=== PATIENT | male | born 1945 | race Caucasian/White ===

== ENCOUNTER 2018-01-13 08:06 | Emergency (ER) | payer MEDICARE, OTHER ==
[~2018-01-13] VITALS: Ht 177.8 cm; Wt 85.0 kg
[2018-01-13 09:00] LABS: BASOPHILS # (AUTO) 0.04 x10^3/uL (0-0.1); BASOPHILS % (AUTO) 0 % (0-1); EOSINOPHILS # (AUTO) 0.06 x10^3/uL (0-0.4); EOSINOPHILS % (AUTO) 1 % (1-7); LYMPHOCYTES # (AUTO) 1.58 x10^3/uL (1-3.4); LYMPHOCYTES % (AUTO) 13 % (22-44); MD NO; MEAN CORPUSCULAR HEMOGLOBIN 30.9 pg (27.5-34.5); MEAN CORPUSCULAR HGB CONC 33.6 g/dL (33.2-36.2); MEAN PLATELET VOLUME 9.2 fL (7.4-10.4); MONOCYTES # (AUTO) 1.11 x10^3/uL (0.2-0.8); MONOCYTES % (AUTO) 9 % (2-9); NEUTROPHILS # (AUTO) 9.25 x10^3/uL (1.8-6.8); NEUTROPHILS % (AUTO) 77 % (42-75); PLATELET COUNT 221 x10^3/uL (130-400); RED BLOOD COUNT 5.07 x10^6/uL (4.38-5.82)
[2018-01-13] MEDS ORDERED: PHENYLEPHRINE NASAL 1%, 15ML SPRAY ONE (09:02)
[2018-01-13 09:09] LABS: ALBUMIN 3.9 g/dL (3.4-5.0); ANION GAP 10 mmol/L (5-15); CALCIUM 8.9 mg/dL (8.5-10.1); CHLORIDE 106 mmol/L (98-107)
[2018-01-13 09:14] LABS: TROPONIN I < 0.015 ng/mL (0.000-0.045)
[2018-01-13] MEDS ORDERED: SODIUM CHLORIDE FLUSH 10ML SYR IVF ONE (09:30)
[2018-01-13] MEDS ORDERED: SODIUM CHLORIDE 0.9% 1,000ML IVBOLUS ONE (09:30)
[2018-01-13] MEDS ORDERED: OMNIPAQUE 350 MG/ML, 100ML BOTTLE ONE (10:26)
[2018-01-13 11:37] VITALS: BP 132/84
== END 2018-01-13 11:39 | disposition home or self-care (01) ==
LOC: ED 08:58
DX: R04.0 Epistaxis (principal); E11.9 Type 2 diabetes mellitus without complications; K21.9 Gastro-esophageal reflux disease without esophagitis; E78.00 Pure hypercholesterolemia, unspecified; Z87.891 Personal history of nicotine dependence
CPT/HCPCS: 30901; 36415; 71046; 71275; 80048; 82040; 84484; 85025; 93005; 99285; J7030; Q9967

== ENCOUNTER 2020-06-03 15:37 | Emergency (ER) | payer MEDICARE, OTHER ==
[~2020-06-03] VITALS: Ht 177.8 cm; Wt 79.4 kg
--- NOTE | 2020-06-03 16:18 | NUR ---
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
[2020-06-03] MEDS ORDERED: SODIUM CHLORIDE 0.9% 1,000ML IVBOLUS ONE (17:00)
[2020-06-03 17:05] LABS: ALANINE AMINOTRANSFERASE 73 U/L (12-78); ALBUMIN 3.2 g/dL (3.4-5.0); ANION GAP 8 mmol/L (5-15); CALCIUM 8.6 mg/dL (8.5-10.1); CHLORIDE 107 mmol/L (98-107); CREATININE 1.64 mg/dL (0.7-1.3)
[2020-06-03 17:09] LABS: ALKALINE PHOSPHATASE 81 U/L (45-117); BILIRUBIN,TOTAL 0.8 mg/dL (0.2-1.0); TOTAL PROTEIN 7.5 g/dL (6.4-8.2); TROPONIN I < 0.015 ng/mL (0.000-0.045)
[2020-06-03] MEDS ORDERED: CEFTRIAXONE PMX 1GM/50ML 50 ML ONE (17:20)
[2020-06-03] MEDS ORDERED: DOXYCYCLINE 100MG TABLET ONE (17:21)
[2020-06-03] MEDS ORDERED: DEXAMETHASONE 4 MG/ML, 1ML IVPush ONE (17:30)
[2020-06-03] MEDS ORDERED: SODIUM CHLORIDE FLUSH 10ML SYR IVF ONE (17:30)
[2020-06-03 17:35] VITALS: BP 121/70
[2020-06-03] MEDS ORDERED: DEXAMETHASONE 4 MG/ML, 5ML ONE (17:38)
[2020-06-03 17:41] LABS: MEAN CORPUSCULAR HEMOGLOBIN 30.7 pg (27.5-34.5); MEAN CORPUSCULAR VOLUME 93.1 fL (81-97); RED BLOOD COUNT 5.49 x10^6/uL (4.38-5.82); RED CELL DISTRIBUTION WIDTH 13.8 % (9.4-14.8)
[2020-06-03 17:47] LABS: MEAN PLATELET VOLUME 9.6 fL (7.4-10.4)
[2020-06-03 17:48] LABS: BASOPHILS # (AUTO) 0.01 x10^3/uL (0-0.1); BASOPHILS % (AUTO) 0 % (0-1); EOSINOPHILS % (AUTO) 0 % (1-7); LYMPHOCYTES # (AUTO) 0.82 x10^3/uL (1-3.4); LYMPHOCYTES % (AUTO) 21 % (22-44); MD MORPH REVIEW ONLY; MONOCYTES # (AUTO) 0.45 x10^3/uL (0.2-0.8); MONOCYTES % (AUTO) 12 % (2-9); NEUTROPHILS # (AUTO) 2.58 x10^3/uL (1.8-6.8); NEUTROPHILS % (AUTO) 67 % (42-75); PLATELET COUNT 137 x10^3/uL (130-400)
[2020-06-03 17:54] LABS: <PLATELET ESTIMATE> ADEQUATE; <RBC MORPHOLOGY> NORMAL; LARGE PLATELETS 1+
[2020-06-03] MEDS ORDERED: DOXYCYCLINE 100MG TABLET PO ONE (18:00)
[2020-06-03] MEDS ORDERED: CEFTRIAXONE PMX 1GM/50ML 50 ML IV ONE (18:00)
== END 2020-06-03 18:54 | disposition home or self-care (01) ==
LOC: ED 17:21
DX: U07.1 COVID-19 (principal); J15.9 Unspecified bacterial pneumonia; R06.00 Dyspnea, unspecified; E86.0 Dehydration; R53.1 Weakness; M79.10 Myalgia, unspecified site; R42 Dizziness and giddiness; R51 Headache; I10 Essential (primary) hypertension; E11.9 Type 2 diabetes mellitus without complications; K21.9 Gastro-esophageal reflux disease without esophagitis; E78.00 Pure hypercholesterolemia, unspecified; I45.2 Bifascicular block
CPT/HCPCS: 36415; 71045; 80053; 84484; 85025; 86140; 87635; 96361; 96365; 96375; 99285; J0696; J1100; J7030; 93005

== ENCOUNTER 2020-07-04 16:38 | Inpatient (IN) | payer MEDICARE, OTHER ==
[~2020-07-04] VITALS: Ht 177.8 cm; Wt 83.3 kg
[~2020-07-04 16:38] MED LIST: APIX5TAB PO; ASCO500T9 PO; ATOR40TA78 PO; CHOL500045 PO; METF500T27 PO; PRED10TA PO; THIA100T67 PO; ZINC220C7 PO
--- NOTE | 2020-07-04 16:40 | NUR ---
PATIENT BIB [facility] WITH CHIEF C/O SOB AND BACK PAIN. PATIENT WAS RECENTLY INPATIENT AT [facility] FOR POSITIVE COVID AND DISCHARGED 06/19. BACK PAIN STARTED YESTERDAY, AND PATIENT REPORTS NOT BEING ABLE TO TAKE A DEEP INHALE. O2 SATURATION IS 95% ON 2 LPM NC, AND BACK PAIN IS AT 5/10.
[2020-07-04] MEDS ORDERED: LOSA25TA25 PO (16:53)
[2020-07-04] MEDS ORDERED: CITA10TA4 PO (16:54)
[2020-07-04] MEDS ORDERED: BUPR150T13 PO (16:54)
[2020-07-04] MEDS ORDERED: ALBU8.5H8 INH (16:56)
--- NOTE | 2020-07-04 18:06 | NUR ---
ERMD AT BEDSIDE FOR EVALUATION.
[2020-07-04] MEDS ORDERED: HEPARIN 5,000 UNITS/ML, 1ML ONE (18:28)
[2020-07-04] MEDS ORDERED: HEPARIN 25,000 UNITS/250ML PMX 250 ML ONE (18:28)
[2020-07-04] MEDS ORDERED: HEPARIN 5,000 UNITS/ML, 1ML IV ONE (18:30)
[2020-07-04] MEDS: HEPARIN 25,000 UNITS/250ML PMX 250 ML IV PRN (18:36)
--- NOTE | 2020-07-04 18:50 | NUR ---
CONFIRMED WITH BULL CHAKRABORTY ORDERS TO START HEPARIN GTT. ERICHD EVALUATED PT YESTERDAY IN ED.
[2020-07-04] MEDS ORDERED: MORPHINE SULFATE 4 MG/ML, 1ML IVPush PRN (19:30)
[2020-07-04] MEDS ORDERED: ONDANSETRON 2MG/ML, 2ML IVPush ONE (19:30)
[2020-07-04] MEDS ORDERED: ONDANSETRON 2MG/ML, 2ML ONE (19:33)
[2020-07-04] MEDS ORDERED: MORPHINE SULFATE 4 MG/ML, 1ML ONE (19:33)
--- NOTE | 2020-07-04 19:49 | NUR ---
RECEIEVED CALL FROM LAB WITH CONCERN FOR ACCURACY OF ANTI XA LEVEL. UNCLEAR IF IT WAS DRAWN BEFORE OR AFTER BOLUS AND LAB STATES THEY WILL CANCEL THE LEVEL AND WILL NOT HAVE A BASELINE LEVEL. INFORMED DR CHAKRABORTY AND HE IS AWARE THAT AT THIS POINT, PT HAS RECIEVED BOLUS AND DRIP STARTED AND PLAN TO WAIT FOR NEXT DRAW
[2020-07-04] MEDS ORDERED: HYDROmorphone 1 MG/ML, 1ML INJ ONE (19:57)
--- NOTE | 2020-07-04 20:27 | NUR ---
pt provided with snacks from floor stock per request, pt informed pending inpatient bed at this time, no further requests, pt appears comfortable, VSS
--- NOTE | 2020-07-04 20:40 | NUR ---
covid swab collected and walked to lab at this time
--- NOTE | 2020-07-04 20:49 | NUR ---
report called to [facility] lim to assume care upon transfer to [facility]
[2020-07-04] MEDS ORDERED: ONDANSETRON ODT 4 MG PO PRN (21:00)
[2020-07-04] MEDS ORDERED: ACETAMINOPHEN 325 MG TABLET PO PRN (21:00)
[2020-07-04] MEDS ORDERED: BISACODYL 10 MG SUPP PR PRN (21:00)
[2020-07-04] MEDS ORDERED: OXYcodone IR 5MG TABLET PO PRN (21:00)
[2020-07-04] MEDS ORDERED: POLYETHYLENE GLYCOL 17 GM PACKET PO PRN (21:00)
--- NOTE | 2020-07-04 21:14 | NUR ---
confirmed anti-xa ordered to be redrawn at 00:30
[2020-07-04 21:56] VITALS: BP 134/79
[2020-07-04] MEDS ORDERED: ALBUTEROL HFA 90 MCG/SPRAY INH PRN (22:00)
[2020-07-04] MEDS ORDERED: ROSU40TA PO (22:15)
[2020-07-04] MEDS ORDERED: METO-93 PO (22:16)
[2020-07-04] MEDS ORDERED: FAMO40TA61 PO (22:17)
[2020-07-04] MEDS: THIAMINE 100MG TABLET PO SCH (22:52)
[2020-07-04] MEDS: ATORVASTATIN 40 MG TABLET PO SCH (22:52)
[2020-07-04] MEDS: BUPROPION SR 150 MG TABLET PO SCH (22:52)
[2020-07-04] MEDS: metFORMIN XR 500 MG TAB.ER.24H PO SCH (22:53)
[2020-07-04] MEDS: SODIUM CHLORIDE FLUSH 10ML SYR IVF SCH (22:53)
[2020-07-04] MEDS: ASCORBIC ACID 500 MG TABLET PO SCH (22:53)
[2020-07-04] MEDS: AZITHROMYCIN 500 MG in SODIUM CHLORIDE 0.9% 250 ML IV SCH (23:46)
[2020-07-05 00:56] LABS: MD YES; MEAN CORPUSCULAR HEMOGLOBIN 31.7 pg (27.5-34.5); MEAN CORPUSCULAR HGB CONC 33.5 g/dL (33.2-36.2); MEAN CORPUSCULAR VOLUME 94.8 fL (81-97); MEAN PLATELET VOLUME 8.4 fL (7.4-10.4); PLATELET COUNT 115 x10^3/uL (130-400); RED BLOOD COUNT 4.39 x10^6/uL (4.38-5.82); RED CELL DISTRIBUTION WIDTH 16.7 % (9.4-14.8)
[2020-07-05 00:58] VITALS: BP 112/78
[2020-07-05 00:58] LABS: ANION GAP 5 mmol/L (5-15); CALCIUM 8.1 mg/dL (8.5-10.1); CHLORIDE 108 mmol/L (98-107); CREATININE 1.07 mg/dL (0.7-1.3)
[2020-07-05 07:48] VITALS: BP 114/71
[2020-07-05] MEDS: ZINC SULFATE 220 MG CAPSULE PO SCH (08:23)
[2020-07-05] MEDS: metFORMIN XR 500 MG TAB.ER.24H PO SCH ×2 (08:23→21:35)
[2020-07-05] MEDS: CITALOPRAM 10 MG TABLET PO SCH (08:24)
[2020-07-05] MEDS: ASCORBIC ACID 500 MG TABLET PO SCH ×3 (08:24→16:38)
[2020-07-05] MEDS: BUPROPION SR 150 MG TABLET PO SCH ×2 (08:24→21:35)
[2020-07-05] MEDS: THIAMINE 100MG TABLET PO SCH ×2 (08:25→21:35)
[2020-07-05] MEDS: LOSARTAN 25MG TABLET PO SCH (08:25)
[2020-07-05] MEDS: SENNA/DOCUSATE TABLET PO SCH (08:25)
[2020-07-05] MEDS: SODIUM CHLORIDE FLUSH 10ML SYR IVF SCH ×2 (08:25→21:35)
[2020-07-05] MEDS: CHOLECALCIFEROL 5,000u TAB PO SCH (08:25)
[2020-07-05] MEDS: CEFTRIAXONE PMX 1GM/50ML 50 ML IV SCH (09:33)
[2020-07-05 13:36] VITALS: BP 106/78
[2020-07-05] MEDS: FUROSEMIDE 40 MG/4 ML IV SCH (14:25)
[2020-07-05 20:07] VITALS: BP 114/67
[2020-07-05] MEDS: ATORVASTATIN 40 MG TABLET PO SCH (21:35)
[2020-07-05] MEDS: ACETAMINOPHEN 325 MG TABLET PO SCH (21:35)
[2020-07-06] MEDS: HEPARIN 25,000 UNITS/250ML PMX 250 ML IV PRN (00:15)
[2020-07-06] MEDS: AZITHROMYCIN 500 MG in SODIUM CHLORIDE 0.9% 250 ML IV SCH (00:15)
[2020-07-06 00:20] VITALS: BP 98/60
[2020-07-06 06:24] VITALS: BP 99/63
[2020-07-06] MEDS: ACETAMINOPHEN 325 MG TABLET PO SCH ×3 (08:00→23:45)
[2020-07-06] MEDS: SODIUM CHLORIDE FLUSH 10ML SYR IVF SCH ×2 (09:00→20:29)
[2020-07-06] MEDS: HEPARIN 5,000 UNITS/ML, 1ML IV PRN ×2 (10:03→23:43)
[2020-07-06] MEDS: SENNA/DOCUSATE TABLET PO SCH (10:07)
[2020-07-06] MEDS: CEFTRIAXONE PMX 1GM/50ML 50 ML IV SCH (10:07)
[2020-07-06] MEDS: CITALOPRAM 10 MG TABLET PO SCH (10:08)
[2020-07-06] MEDS: CHOLECALCIFEROL 5,000u TAB PO SCH (10:08)
[2020-07-06] MEDS: ASCORBIC ACID 500 MG TABLET PO SCH ×3 (10:08→16:54)
[2020-07-06] MEDS: BUPROPION SR 150 MG TABLET PO SCH ×2 (10:08→20:29)
[2020-07-06] MEDS: LOSARTAN 25MG TABLET PO SCH (10:08)
[2020-07-06] MEDS: THIAMINE 100MG TABLET PO SCH ×2 (10:08→20:29)
[2020-07-06] MEDS: ZINC SULFATE 220 MG CAPSULE PO SCH (10:08)
[2020-07-06] MEDS: metFORMIN XR 500 MG TAB.ER.24H PO SCH ×2 (10:10→20:29)
[2020-07-06] MEDS: FUROSEMIDE 40 MG/4 ML IV SCH (10:10)
[2020-07-06 12:36] VITALS: BP 118/69
[2020-07-06 12:36] LABS: BASOPHILS # (AUTO) 0.08 x10^3/uL (0-0.1); BASOPHILS % (AUTO) 2 % (0-1); EOSINOPHILS # (AUTO) 0.23 x10^3/uL (0-0.4); EOSINOPHILS % (AUTO) 5 % (1-7); LYMPHOCYTES # (AUTO) 1.04 x10^3/uL (1-3.4); LYMPHOCYTES % (AUTO) 21 % (22-44); MONOCYTES # (AUTO) 0.55 x10^3/uL (0.2-0.8); MONOCYTES % (AUTO) 11 % (2-9); NEUTROPHILS % (AUTO) 61 % (42-75)
[2020-07-06 18:28] VITALS: BP 122/63
[2020-07-06 19:40] VITALS: BP 114/71
[2020-07-06] MEDS: ATORVASTATIN 40 MG TABLET PO SCH (20:29)
[2020-07-07] MEDS: AZITHROMYCIN 500 MG in SODIUM CHLORIDE 0.9% 250 ML IV SCH (00:26)
[2020-07-07 00:28] VITALS: BP 118/73
[2020-07-07] MEDS: HEPARIN 25,000 UNITS/250ML PMX 250 ML IV PRN (02:49)
[2020-07-07] MEDS ORDERED: APIXABAN MC SCH (07:00)
[2020-07-07] MEDS ORDERED: FAMOTIDINE 40 MG TABLET PO SCH (08:00)
[2020-07-07 08:11] VITALS: BP 124/73
[2020-07-07] MEDS: ZINC SULFATE 220 MG CAPSULE PO SCH (08:14)
[2020-07-07] MEDS: ASCORBIC ACID 500 MG TABLET PO SCH ×2 (08:15→12:00)
[2020-07-07] MEDS: CHOLECALCIFEROL 5,000u TAB PO SCH (08:15)
[2020-07-07] MEDS: BUPROPION SR 150 MG TABLET PO SCH (08:15)
[2020-07-07] MEDS: THIAMINE 100MG TABLET PO SCH (08:15)
[2020-07-07] MEDS: ACETAMINOPHEN 325 MG TABLET PO SCH (08:16)
[2020-07-07] MEDS: APIXABAN 5 MG TABLET PO SCH ×2 (08:19→09:00)
[2020-07-07] MEDS: SENNA/DOCUSATE TABLET PO SCH (08:19)
[2020-07-07] MEDS: metFORMIN XR 500 MG TAB.ER.24H PO SCH (08:19)
[2020-07-07] MEDS: SODIUM CHLORIDE FLUSH 10ML SYR IVF SCH (08:29)
[2020-07-07] MEDS: CITALOPRAM 10 MG TABLET PO SCH (09:00)
[2020-07-07 12:03] VITALS: BP 123/75
[2020-07-07] MEDS ORDERED: APIX5TAB PO (13:36)
== END 2020-07-07 17:00 | disposition home health service (06) | DRG 177 ==
LOC: ED 19:28 → EDIP 20:36 → 4EST 22:25 → 4WST 07-06 18:07
PROVIDERS: ADMIT Family Medicine; ATTEND Hospitalist
DX: U07.1 COVID-19 (principal); I26.99 Other pulmonary embolism without acute cor pulmonale; J12.9 Viral pneumonia, unspecified; E11.9 Type 2 diabetes mellitus without complications; I10 Essential (primary) hypertension; E78.5 Hyperlipidemia, unspecified; Z86.711 Personal history of pulmonary embolism; Z87.891 Personal history of nicotine dependence; Z79.01 Long term (current) use of anticoagulants; K21.9 Gastro-esophageal reflux disease without esophagitis; Z20.828 Contact with and (suspected) exposure to other viral communicable diseases
CPT/HCPCS: 36415; 80048; 84145; 85025; 85520; 85730; 87635; 93005; 93308; 96374; 96375; G0378; J0456; J0696; J1644; J1940; J2405; J2270; J7050